=== PATIENT | male | born 1965 | race Caucasian/White ===

== ENCOUNTER → 2017-03-24 | Outpatient (CLI) | payer MEDICARE ==
[2016-03-06 22:02] VITALS: BP 129/80
[~2017-03-24] MED LIST: ADVIL LIQUI-GE200 MG PO; IMODIUM A-D2 M2 PO; KETOROLAC10 MG PO; KLONOPIN 0.5MG0.5 MG PO; LEXAPRO20 M1 PO
[2017-03-24 08:36] LABS: EOS # 0.2 (0.04-0.40); HEMATOCRIT 38.9 % (42.0-52.0); HEMOGLOBIN 13.2 g/dL (13.5-18.0); LYMPH# 1.8 (1.50-4.00); MEAN CELL VOLUME 91 fl (78-100); MEAN CORPUSCULAR HEMOGLOBIN 31 pg (27-31); MEAN CORPUSCULAR HGB CONC 34 g/dL (33-37); MEAN PLATELET VOLUME 10.3 fl (7.4-10.4); MONO # 0.6 (0.20-0.80); NEU # 4.6 (1.40-6.50); PLATELET COUNT 289 K/mm3 (130-400); RED BLOOD COUNT 4.27 M/mm3 (4.20-5.60); RED CELL DISTRIBUTION WIDTH 12.5 % (11.5-14.5); WHITE BLOOD COUNT 7.2 K/mm3 (4.8-10.8)
[2017-03-24 08:54] LABS: ALBUMIN 4.3 g/dL (3.5-5.0); BUN/CREATININE RATIO 12.1 (6.0-26.0); CALCIUM 9.3 mg/dL (8.4-10.2); POTASSIUM 4.2 mmol/L (3.6-5.0); TOTAL PROTEIN 7.4 g/dL (6.3-8.2)
[2017-03-24 09:47] LABS: ERYTHROCYTE SEDIMENTATION RATE 15 mm/hr (0-15)
== END ==
LOC: LAB 08:24
PROVIDERS: Family Medicine
DX: M25.569 Pain in unspecified knee (principal); F41.9 Anxiety disorder, unspecified; Z87.39 Personal history of other diseases of the musculoskeletal system and connective tissue; K92.9 Disease of digestive system, unspecified; F42.9 Obsessive-compulsive disorder, unspecified; Z80.42 Family history of malignant neoplasm of prostate; Z12.5 Encounter for screening for malignant neoplasm of prostate; Z13.6 Encounter for screening for cardiovascular disorders

== ENCOUNTER → 2017-04-07 | Outpatient (CLI) | payer MEDICARE ==
[2016-03-06 22:02] VITALS: BP 129/80
== END ==
LOC: RAD 13:25
DX: K92.9 Disease of digestive system, unspecified (principal); H61.20 Impacted cerumen, unspecified ear; Z87.39 Personal history of other diseases of the musculoskeletal system and connective tissue; Z88.0 Allergy status to penicillin

== ENCOUNTER 2021-11-18 08:12 | Emergency (ER) | payer MEDICARE ==
[~2021-11-18] VITALS: Ht 182.9 cm; Wt 61.4 kg
[2021-11-18] MEDS ORDERED: CLONAZEPAM0.5 M1 PO (08:34)
[2021-11-18] MEDS ORDERED: ESCITALOPRAM20 MG PO (08:34)
[2021-11-18 09:43] LABS: BASO # 0.05 K/mm3 (0.02-0.10); EOS # 0.07 K/mm3 (0.04-0.40); EOS % 1.1 % (0.0-4.0); HEMATOCRIT 37.2 % (42.0-52.0); HEMOGLOBIN 12.4 g/dL (13.5-18.0); MEAN CELL VOLUME 94 fl (78-100); MEAN CORPUSCULAR HEMOGLOBIN 31 pg (27-31); MEAN CORPUSCULAR HGB CONC 33 g/dL (33-37); MEAN PLATELET VOLUME 9.7 fl (7.4-10.4); MONO # 0.48 K/mm3 (0.20-0.80); PLATELET COUNT 256 K/mm3 (130-400); RED BLOOD COUNT 3.96 M/mm3 (4.20-5.60); RED CELL DISTRIBUTION WIDTH 12.9 % (11.5-14.5); WHITE BLOOD COUNT 6.4 K/mm3 (4.8-10.8)
[2021-11-18 09:50] LABS: ALBUMIN 4.3 g/dL (3.5-5.0)
[2021-11-18 09:51] LABS: POTASSIUM 3.7 mmol/L (3.5-5.1)
[2021-11-18 09:52] LABS: CALCIUM 9.1 mg/dL (8.3-10.5)
[2021-11-18 09:53] LABS: TOTAL PROTEIN 6.9 g/dL (6.4-8.3)
[2021-11-18 09:55] LABS: TOTAL BILIRUBIN 0.7 mg/dL (0.2-1.2)
[2021-11-18 10:52] LABS: URINE WBC 0 /hpf (0-3)
[2021-11-18 11:09] LABS: URINE APPEARANCE CLEAR
[2021-11-18 11:10] LABS: URINE BILIRUBIN NEGATIVE (NEGATIVE); URINE BLOOD NEGATIVE (NEGATIVE); URINE COLOR LIGHT YELLOW; URINE GLUCOSE NEGATIVE (NEGATIVE); URINE KETONE NEGATIVE (NEGATIVE); URINE LEUKOCYTE ESTERASE NEGATIVE (NEGATIVE); URINE NITRATE NEGATIVE (NEGATIVE); URINE PROTEIN(semi-quant) NEGATIVE (NEGATIVE); URINE UROBILINOGEN NORMAL (NORMAL)
[2021-11-19 09:29] VITALS: BP 119/73
== END 2021-11-19 15:39 | disposition home or self-care (01) ==
LOC: ED 08:12
PROVIDERS: Physician Assistant
DX: A08.4 Viral intestinal infection, unspecified (principal); F32.A Depression, unspecified; F42.9 Obsessive-compulsive disorder, unspecified; Z28.310 Unvaccinated for COVID-19; Z20.822 Contact with and (suspected) exposure to COVID-19
CPT/HCPCS: J7030

== ENCOUNTER → 2021-11-20 | Outpatient (CLI) | payer MEDICARE ==
[~2021-11-20] MED LIST changes: +CLONAZEPAM0.5 M1 PO; +ESCITALOPRAM20 MG PO
[2021-11-20 16:40] LABS: BASO # 0.03 K/mm3 (0.02-0.10); EOS # 0.11 K/mm3 (0.04-0.40); EOS % 1.3 % (0.0-4.0); HEMATOCRIT 36.4 % (42.0-52.0); HEMOGLOBIN 12.3 g/dL (13.5-18.0); LYMPH# 2.72 K/mm3 (1.50-4.00); MEAN CELL VOLUME 94 fl (78-100); MEAN CORPUSCULAR HEMOGLOBIN 32 pg (27-31); MEAN CORPUSCULAR HGB CONC 34 g/dL (33-37); MEAN PLATELET VOLUME 9.7 fl (7.4-10.4); MONO # 0.68 K/mm3 (0.20-0.80); NEU # 5.01 K/mm3 (1.40-6.50); PLATELET COUNT 251 K/mm3 (130-400); RED BLOOD COUNT 3.88 M/mm3 (4.20-5.60); RED CELL DISTRIBUTION WIDTH 12.8 % (11.5-14.5); WHITE BLOOD COUNT 8.6 K/mm3 (4.8-10.8)
[2021-11-20 16:53] LABS: ALBUMIN 4.6 g/dL (3.5-5.0)
[2021-11-20 16:54] LABS: CALCIUM 9.3 mg/dL (8.3-10.5)
[2021-11-20 16:55] LABS: TOTAL PROTEIN 7.3 g/dL (6.4-8.3)
[2021-11-20 16:57] LABS: TOTAL BILIRUBIN 0.5 mg/dL (0.2-1.2)
[2021-11-25 23:43] LABS: VITAMIN B1 138 nmol/L (70-180)
== END ==
LOC: LAB 16:20
PROVIDERS: Internal Medicine
DX: Z12.5 Encounter for screening for malignant neoplasm of prostate (principal); K90.9 Intestinal malabsorption, unspecified; F42.9 Obsessive-compulsive disorder, unspecified

== ENCOUNTER → 2021-12-25 | Outpatient (CLI) | payer MEDICARE | LOC: RAD 13:41 | DX: M51.36 Other intervertebral disc degeneration, lumbar region (principal); M51.37 Other intervertebral disc degeneration, lumbosacral region ==

== ENCOUNTER → 2022-01-12 | Outpatient (CLI) | payer MEDICARE | LOC: RAD 14:33 | DX: M51.36 Other intervertebral disc degeneration, lumbar region (principal); M51.37 Other intervertebral disc degeneration, lumbosacral region; M48.061 Spinal stenosis, lumbar region without neurogenic claudication; M48.07 Spinal stenosis, lumbosacral region; M40.56 Lordosis, unspecified, lumbar region ==

== ENCOUNTER 2022-02-19 10:52 | Outpatient (RCR) | payer MEDICARE | END 2022-03-18 | disposition still patient (30) | LOC: PT | DX: M76.899 Other specified enthesopathies of unspecified lower limb, excluding foot (principal) ==

== ENCOUNTER → 2024-01-14 | Outpatient (REF) | payer MEDICARE, BC ==
[~2024-01-14] MED LIST changes: +CELECOXIB200 M1 PO
[2024-01-14 09:24] LABS: BASO # 0.04 K/mm3 (0.02-0.10); EOS # 0.12 K/mm3 (0.04-0.40); EOS % 1.9 % (0.0-4.0); HEMATOCRIT 39.3 % (42.0-52.0); HEMOGLOBIN 12.9 g/dL (13.5-18.0); LYMPH# 1.25 K/mm3 (1.50-4.00); MEAN CELL VOLUME 96 fl (78-100); MEAN CORPUSCULAR HEMOGLOBIN 32 pg (27-31); MEAN CORPUSCULAR HGB CONC 33 g/dL (33-37); MEAN PLATELET VOLUME 10.3 fl (7.4-10.4); MONO # 0.36 K/mm3 (0.20-0.80); NEU # 4.66 K/mm3 (1.40-6.50); PLATELET COUNT 274 K/mm3 (130-400); WHITE BLOOD COUNT 6.4 K/mm3 (4.8-10.8)
[2024-01-14 09:34] LABS: ALBUMIN 4.5 g/dL (3.5-5.0)
[2024-01-14 09:35] LABS: CALCIUM 9.4 mg/dL (8.3-10.5)
[2024-01-14 09:36] LABS: TOTAL PROTEIN 7.3 g/dL (6.4-8.3)
[2024-01-14 09:38] LABS: TOTAL BILIRUBIN 0.7 mg/dL (0.2-1.2)
[2024-01-14 09:43] LABS: MAGNESIUM 1.95 mg/dL (1.60-2.60)
== END ==
LOC: LAB 09:05
PROVIDERS: Internal Medicine
DX: Z12.11 Encounter for screening for malignant neoplasm of colon (principal); Z12.5 Encounter for screening for malignant neoplasm of prostate; F42.9 Obsessive-compulsive disorder, unspecified; E78.2 Mixed hyperlipidemia; D64.9 Anemia, unspecified

== ENCOUNTER → 2024-01-20 | Outpatient (REF) | payer MEDICARE, BC | LOC: LAB 08:35 | DX: R73.9 Hyperglycemia, unspecified (principal) ==

== ENCOUNTER → 2024-05-08 | Outpatient (REF) | payer MEDICARE, BC | LOC: LAB 08:31 | DX: Z01.89 Encounter for other specified special examinations (principal) ==